=== PATIENT | female | born 1955 | race Asian ===

== ENCOUNTER 2022-02-19 14:37 | Outpatient (REF) | payer OTHER, SELFPAY ==
[2022-02-19 15:01] LABS: MANUAL DIFF FLAG NO
[2022-02-19 15:12] LABS: Basophils Absolute Auto 0.1 X10*3/uL (0.0-0.2); Basophils Percent Auto 0.5 % (0-2); Eosinophils Absolute Auto 0.5 X10*3/uL (0.0-0.4); Eosinophils Percent Auto 4.9 % (0-4); Hematocrit 38.8 % (37.0-47.0); Hemoglobin 13.4 g/dl (12.0-16.0); Imm Gran Abs Auto 0.08 X10*3/uL (0.00-0.03); Imm Gran Pct Auto 0.9 % (0.0-0.4); Lymphocytes Absolute Auto 2.8 X10*3/uL (1.2-4.9); Lymphocytes Percent Auto 29.6 % (20-40); Mean Corpuscular HGB Conc 34.5 g/dl (31.0-35.0); Mean Corpuscular Hemoglobin 30.1 pg (27.0-33.0); Mean Corpuscular Volume 87.2 fL (80.0-98.0); Mean Platelet Volume 10.2 fL (9.4-12.3); Monocytes Percent Auto 11.1 % (2-11); Platelet Count 349 X10*3/uL (160-400); Red Blood Count 4.45 X10*6/uL (4.20-5.50); Red Cell Distribution Width 12.4 % (11.0-16.0); White Blood Count 9.4 X10*3/uL (4.8-10.8)
[2022-02-19 15:19] LABS: INTERNATIONAL NORM RATIO 0.9 (0.9-1.1); Prothrombin Time 10.8 SEC (10.0-13.1)
[2022-02-19 15:22] LABS: Partial Thromboplastin Time 42.7 SEC (26.0-36.4)
[2022-02-19 15:40] LABS: Alanine Aminotransferase 36 U/L (0-31); Albumin Level 4.5 g/dL (3.5-5.0); Alkaline Phosphatase 88 U/L (39-117); Anion Gap 17 (12-20); Aspartate Amino Transferase 42 U/L (5-31); Bilirubin Total 0.4 mg/dL (0.0-1.0); Blood Urea Nitrogen 15 mg/dL (9-16); Calcium 8.8 mg/dL (8.4-10.2); Carbon Dioxide 24 mmol/L (22-29); Chloride 106 mmol/L (96-108); Estimated Glomerular Filt Rate > 60; Glucose Random 112 mg/dL (60-115); Potassium 3.9 mmol/L (3.3-5.1); Sodium 143 mmol/L (135-145); Total Protein 7.9 g/dL (6.5-8.0)
== END 2022-02-19 14:38 | disposition home or self-care (01) ==
LOC: HO.LAB 14:37
PROVIDERS: Absent Provider Internal Medicine; PCP Internal Medicine; Visit Provider Family Medicine
DX: K92.1 Melena (principal)
CPT/HCPCS: 36415; 80053; 85025; 85610; 85730

== ENCOUNTER → 2022-04-04 13:49 | Outpatient (BNVA) | payer OTHER, SELFPAY | PROVIDERS: PCP Family Medicine; Referring Provider Family Medicine; Visit Provider Nurse Practitioner | DX: Z01.818 Encounter for other preprocedural examination (principal); K59.04 Chronic idiopathic constipation; K64.9 Unspecified hemorrhoids; K62.5 Hemorrhage of anus and rectum | CPT/HCPCS: 99202 ==

== ENCOUNTER → 2022-06-11 15:19 | Outpatient (BNVA) | payer OTHER, SELFPAY | PROVIDERS: PCP Family Medicine; Visit Provider Nurse Practitioner | DX: K59.04 Chronic idiopathic constipation (principal); K64.9 Unspecified hemorrhoids | CPT/HCPCS: 99212 ==

== ENCOUNTER 2022-12-31 08:19 | Outpatient (REF) | payer OTHER, SELFPAY ==
--- NOTE | ~2022-12-31 | MM_ITS ---
EXAMINATION: BONE DENSITOMETRY CLINICAL INDICATION: Encounter for screening for osteoporosis. COMPARISON: None (current study represents initial baseline exam). TECHNIQUE: Using a [employer] DXA System (software version: 13.1) manufactured by [employer], dual-energy x-ray absorptiometry was performed of the lumbar spine and left hip. The images are of good technical quality. Summary results are attached. FINDINGS: AP SPINE L1-L4: BMD 0.902 g/cm2, Z-score -0.6, T-score -2.3, osteopenia. LEFT FEMUR, NECK: BMD 0.827 g/cm2, Z-score 0.1, T-score -1.5, osteopenia. LEFT FEMUR, TOTAL: BMD 0.995 g/cm2, Z-score 1.3, T-score -0.1, normal. IDENTIFIED RISK FACTORS: Menopause. HISTORY OF FRACTURE: None listed. MEDICATIONS: None listed. MM/XR DEXA axial skeleton IMPRESSION: 1. DIAGNOSIS: Osteopenia based on the lowest T-score value of -2.3 in the lumbar spine applying World Health Organization criteria. 2. 10-YEAR FRACTURE RISK PREDICTION, FRAX: Major osteoporotic fracture (clinical spine, forearm, hip or shoulder) 5.2%. Hip fracture 0.6%. 3. Treatment Recommendations: NOF guidelines recommend consideration for treatment in postmenopausal women and men age 50 and older presenting with the following: -A hip or vertebral (clinical or morphometric) fracture. -T-score less than or equal to -2.5 at the femoral neck or spine after appropriate evaluation to exclude secondary causes. -Low bone mass at the hip or spine and a 10-year fracture probability by FRAX of greater than or equal to 3% for hip fracture or greater than or equal to 20% for major osteoporotic fracture based on the [place] adapted WHO algorithm. 4. Other Recommendations: All treatment decisions require clinical judgment and consideration of individual patient factors, including patient preferences, comorbidities, previous drug use, risk factors not captured in the FRAX model (e.g. frailty, falls, vitamin D deficiency, increased bone turnover, interval significant decline in bone density) and possible under or overestimation of fracture risk by FRAX. Additional medical evaluation for secondary cause of low bone mineral density may be appropriate. FUTURE SCAN RECOMMENDATION: People with diagnosed cases of osteoporosis or at high risk for fracture should have regular bone mineral density tests. For patients eligible for Medicare, routine testing is allowed once every 2 years. The testing frequency can be increased to one year for patients who have rapidly progressing disease, those who are receiving or discontinuing medical therapy to restore bone mass, or have additional risk factors.
--- NOTE | ~2022-12-31 | MM_ITS ---
EXAMINATION: MM SCREENING DIGITAL BREAST TOMOSYNTHESIS, BILATERAL CLINICAL INFORMATION: Screening. Asymptomatic. The lifetime risk of breast cancer based on the Tyrer-Cuzick Model is 4.3%. COMPARISON: Mammography: August 26, 2011 and July 26, 2010 TECHNIQUE: Digital breast tomosynthesis is performed in both the craniocaudal and mediolateral oblique views along with computer-aided detection (CAD). Synthesized 2D images are generated from the tomosynthesis. FINDINGS: There are scattered areas of fibroglandular density (ACR BI-RADS breast composition Category b). There are no significant masses, abnormal calcifications, or other abnormalities. MM/MM tomosynthesis screening BI IMPRESSION: No significant changes from prior exam. ASSESSMENT: BI-RADS 1: Negative RECOMMENDATION: Routine annual mammography screening. This patient's information was entered into a reminder system with a target due date for their next mammogram.
== END 2022-12-31 08:20 | disposition home or self-care (01) ==
LOC: HO.MAMMO 08:19
PROVIDERS: PCP Internal Medicine; Visit Provider Registered Nurse
DX: Z12.31 Encounter for screening mammogram for malignant neoplasm of breast (principal); Z13.820 Encounter for screening for osteoporosis; Z78.0 Asymptomatic menopausal state; M81.0 Age-related osteoporosis without current pathological fracture
CPT/HCPCS: 77063; 77067; 77080

== ENCOUNTER → 2023-01-09 15:37 | Outpatient (BNVA) | payer OTHER, SELFPAY | PROVIDERS: Visit Provider Nurse Practitioner | DX: K59.04 Chronic idiopathic constipation (principal); K64.9 Unspecified hemorrhoids; K21.9 Gastro-esophageal reflux disease without esophagitis | CPT/HCPCS: 99212 ==

== ENCOUNTER 2023-02-26 07:35 | Outpatient (REF) | payer OTHER, SELFPAY ==
--- NOTE | ~2023-02-26 | US_ITS ---
EXAMINATION: US ABDOMEN COMPLETE CLINICAL INFORMATION: Abnormal liver enzymes. COMPARISON: Abdominal ultrasound September 06, 2019 TECHNIQUE: Real-time imaging of the abdominal viscera. Today's examination is mildly limited secondary to overlying bowel gas. FINDINGS: PANCREAS: Visualized portions of pancreas are normal in appearance. ABDOMINAL AORTA: The proximal and mid segments are normal in caliber. The distal segment is not clearly visualized due to overlying bowel gas. INFERIOR VENA CAVA: Visualized portions are normal. LIVER: The liver is normal in size. The liver contour is normal. Liver echogenicity is increased diffusely. No focal hepatic lesion. There is no intrahepatic biliary duct dilatation seen. GALLBLADDER: The gallbladder is physiologically distended. There is a 3 mm echogenic focus contiguous with the gallbladder wall which is most consistent with a tiny polyp. No shadowing gallstones identified. No gallbladder wall thickening or pericholecystic fluid appreciated. Negative sonographic Zhou's sign. COMMON BILE DUCT: Normal in caliber measuring 0.3 cm in diameter. RIGHT KIDNEY: Normal. No hydronephrosis. No renal calculi or focal parenchymal lesions. The kidney measures 10.1 cm in maximum dimension. LEFT KIDNEY: Normal. No hydronephrosis. No renal calculi or focal parenchymal lesions. The kidney measures 10 cm in maximum dimension. SPLEEN: Normal. The spleen measures 10.5 cm in maximum dimension. FREE FLUID: None. US/US abdomen complete IMPRESSION: 1. Diffusely increased liver echogenicity. This is a nonspecific finding but most suggestive of hepatic steatosis. Correlation with liver enzymes recommended. 2. Suspected 3 mm gallbladder polyp.
== END 2023-02-26 07:36 | disposition home or self-care (01) ==
LOC: HO.US 07:35
PROVIDERS: Visit Provider Internal Medicine
DX: R79.89 Other specified abnormal findings of blood chemistry (principal)
CPT/HCPCS: 76700

== ENCOUNTER 2023-12-10 08:37 | Outpatient (REF) | payer OTHER, SELFPAY ==
[2023-12-10 14:45] LABS: MANUAL DIFF FLAG NO
[2023-12-10 15:11] LABS: Alanine Aminotransferase 16 U/L (0-31); Albumin Level 4.6 g/dL (3.5-5.0); Alkaline Phosphatase 85 U/L (39-117); Anion Gap 16 (12-20); Aspartate Amino Transferase 23 U/L (5-31); Bilirubin Total 0.5 mg/dL (0.0-1.0); Blood Urea Nitrogen 22 mg/dL (9-16); Calcium 9.7 mg/dL (8.4-10.2); Carbon Dioxide 22 mmol/L (22-29); Chloride 106 mmol/L (96-108); Cholesterol 171 mg/dL (<200); Estimated Glomerular Filt Rate > 60; Glucose Random 105 mg/dL (60-115); HDL Cholesterol 30 mg/dL (>40); LDL Cholesterol Calculated 82 mg/dL (<100); Potassium 4.1 mmol/L (3.3-5.1); Sodium 140 mmol/L (135-145); Total Protein 8.1 g/dL (6.5-8.0); Triglycerides 298 mg/dL (<150)
[2023-12-10 15:23] LABS: Basophils Absolute Auto 0.1 X10*3/uL (0.0-0.2); Basophils Percent Auto 0.8 % (0-2); Eosinophils Absolute Auto 0.4 X10*3/uL (0.0-0.4); Eosinophils Percent Auto 5.3 % (0-4); Hematocrit 41.1 % (37.0-47.0); Imm Gran Abs Auto 0.05 X10*3/uL (0.00-0.03); Imm Gran Pct Auto 0.7 % (0.0-0.4); Lymphocytes Absolute Auto 1.8 X10*3/uL (1.2-4.9); Lymphocytes Percent Auto 24.3 % (20-40); Mean Corpuscular HGB Conc 34.1 g/dl (31.0-35.0); Mean Corpuscular Hemoglobin 30.4 pg (27.0-33.0); Mean Corpuscular Volume 89.2 fL (80.0-98.0); Mean Platelet Volume 11.4 fL (9.4-12.3); Monocytes Absolute Auto 0.9 X10*3/uL (0.1-1.2); Monocytes Percent Auto 12.1 % (2-11); Neutrophils Absolute Auto 4.2 x10*3/uL (2.0-8.3); Neutrophils Percent Auto 56.8 % (45-73); Platelet Count 300 X10*3/uL (160-400); Red Blood Count 4.61 X10*6/uL (4.20-5.50); Red Cell Distribution Width 12.3 % (11.0-16.0); White Blood Count 7.3 X10*3/uL (4.8-10.8)
[2023-12-10 15:28] LABS: TSH reflex Free T4 3.48 uIU/mL (0.32-4.0)
== END 2023-12-10 08:38 | disposition home or self-care (01) ==
LOC: HO.CHCLDS 08:37
PROVIDERS: Visit Provider Internal Medicine
DX: M77.9 Enthesopathy, unspecified (principal)
CPT/HCPCS: 36415; 80053; 80061; 84443; 85025

== ENCOUNTER 2024-01-13 10:26 | Outpatient (REF) | payer OTHER, SELFPAY ==
--- NOTE | ~2024-01-13 | MM_ITS ---
EXAMINATION: MM SCREENING DIGITAL BREAST TOMOSYNTHESIS, BILATERAL CLINICAL INFORMATION: Screening. Asymptomatic. COMPARISON: Mammography: This study is compared with prior exams dating back to 2012. TECHNIQUE: Digital breast tomosynthesis is performed in both the craniocaudal and mediolateral oblique views along with computer-aided detection (CAD). Synthesized 2D images are generated from the tomosynthesis. FINDINGS: There are scattered areas of fibroglandular density (ACR BI-RADS breast composition Category b). There are no significant masses, abnormal calcifications, or other abnormalities. MM/MM tomosynthesis screening BI IMPRESSION: No mammographic evidence of malignancy. ASSESSMENT: BI-RADS BI-RADS 1 - Negative RECOMMENDATION: Routine annual mammography screening. 1 year F/U This examination should not preclude the clinical evaluation of a suspicious palpable abnormality. This patient's information was entered into a reminder system with a target due date for their next mammogram.
== END 2024-01-13 10:27 | disposition home or self-care (01) ==
LOC: HO.MAMMO 10:26
PROVIDERS: PCP Internal Medicine; Visit Provider Internal Medicine
DX: Z12.31 Encounter for screening mammogram for malignant neoplasm of breast (principal)
CPT/HCPCS: 77063; 77067

== ENCOUNTER → 2024-01-13 11:00 | Outpatient (BNV) | payer OTHER, SELFPAY | PROVIDERS: PCP Internal Medicine; Visit Provider Radiology Diagnostic Radiology | DX: Z12.31 Encounter for screening mammogram for malignant neoplasm of breast (principal) | CPT/HCPCS: 77063; 77067 ==

== ENCOUNTER 2024-03-02 13:51 | Outpatient (AMB) | payer OTHER, SELFPAY ==
--- NOTE | 2024-03-02 13:53 | MHC.OFFVIS ---
Vital Signs 03/02/24 14:03 Height 5 ft 1 in Weight 137 lb 9.095 oz BMI 26.0 BP 140/79 H Blood Pressure Location Lt brachial Position Sitting Pulse 81 Intake Visit Reasons: f/u [facility] Intake Note: Loan returns to in office visit today in follow up of [facility]. CC: Patient reports doing well on medications and denies having any GI symptoms or concerns today. Faith Healer Required: Yes Faith Healer Name: son in law Accompanied by: Family/Other Allergies No Known Allergies Allergy (Verified 03/02/24 14:04) HPI HPI f/u [facility]: Details: Assessment & Plan (1) Chronic idiopathic constipation: Code(s): K59.04 - Chronic idiopathic constipation Plan: Her son translates for her [place] language a Citizen [place]. She continues to do extremely well moving her bowels to her satisfaction utilizing her senna and her Colace. She also has MiraLax available if needed. Since we have restored her bowel motility she is no longer needed any medication for her GERD and is no longer taking the generic for Nexium. Return office visit in 1 year since she is very stable. (2) GERD (gastroesophageal reflux disease): Comment: No longer taking any acid reducing therapy after restoring bowel motility Code(s): K21.9 - Gastro-esophageal reflux disease without esophagitis (3) Hemorrhoids without complication: Code(s): K64.9 - Unspecified hemorrhoids Medications: Refilled sennosides (senna) 17.2 mg (2 x 8.6 mg) PO BEDTIME 30 days 60 caps 6RF constipation docusate sodium (Colace) 100 mg PO .DAILY WITH FOOD 30 days 30 caps 6RF K59.04 - Chronic idiopathic constipation TODAY'S VISIT Citizen [place] # son translates per pt request This is the patient's yearly follow-up since she has been very stable in the past. She remains well controlled on her senna, miralax, colace and proctosol cream. No new health problems ROV 1 year. [facility] Medical History Pre-op examination Hyperplastic colon polyp Surgical History H/O colonoscopy Social History Alcohol intake: never Patient Tobacco Use Status: Never used Tobacco Review of Systems Const Denies fatigue, Denies fever(s), Denies night sweats, Denies poor appetite and Denies weight loss Eyes Details: glasses Reports requires corrective lenses ENT Reports Normal hearing present, Denies dental pain, Denies dysphagia, Denies hearing loss, Denies mouth pain, Denies odynophagia, Denies throat swelling, Denies tongue swelling and Reports other (Dentition adequate) Card Reports no additional complaints Resp Reports no additional complaints GI Details: Denies abdominal pain, Denies melena, Denies bloating, Denies hematochezia, Reports constipation, Denies GI cramping, Denies dysphagia, Denies excessive flatus, Denies early satiety, Denies heartburn, Denies diarrhea, Denies nausea, Denies odynophagia, Denies vomiting and Denies hematemesis Skin/Breast Denies pruritus, Denies lesions, Denies rash and Denies jaundice Neuro Reports Normal hearing present and Denies Abnormal speech present Endo Denies fatigue Aller/Immun Denies throat swelling and Denies tongue swelling Physical Exam Vital Signs: Last Vital Signs Pulse 81 03/02/24 14:03 BP 140/79 H 03/02/24 14:03 BMI result Body Mass Index 26.0 Const General: cooperative, no acute distress, well developed and well groomed Nutritional Appearance: average body habitus and well nourished Orientation/consciousness: oriented to person, oriented to place and oriented to time Limitations: language barrier HEENT Head: Yes normocephalic and Yes atraumatic Eyes General: appearance normal, both eyes and all related structures Pupils: Equal, round and reactive pupils present Neck Neck: Yes normal visual inspection and Yes no lymphadenopathy Thyroid: Thyroid normal Resp Effort & Inspection: normal respiratory effort and able to speak in complete sentences Auscultation: clear to auscultation bilaterally Cardio Rate: regular rate Rhythm: regular rhythm Heart sounds: Normal, physiologic split S2 sound present Peripheral pulses: radial pulses present and posterior tibial pulses present GI Inspection: No distended and No Abdominal panniculus present Palpation (GI): Soft to palpation, nontender, no guarding, not rigid and No hepatosplenomegaly present Percussion: Yes normal to percussion Auscultation: normal bowel sounds Rectal Exam - Female: deferred Skin General skin exam: no rashes or lesions noted, turgor normal, skin not dry, no jaundice, No spider nevi and no striae Rashes: no rashes Nails: normal Neuro General: oriented to person, oriented to place and oriented to time Cranial nerves: Yes Equal, round and reactive pupils present and Yes Normal hearing present Speech: No Abnormal speech present Extrem General: Yes normal to inspection, No clubbing, No cyanosis and No edema Psych Appearance: grossly normal and well kempt Mental Status: mental status grossly normal Speech and movement: Normal speech and movement present Affect: normal affect Attitude: cooperative Thought process: Normal thought process present and not confabulating Thought content: Normal thought content present Insight: Good insight present (Psych) Judgement: Good judgement present (Psych) Assessment & Plan Assessment & Plan (1) GERD (gastroesophageal reflux disease): Comment: No longer taking any acid reducing therapy after restoring bowel motility Code(s): K21.9 - Gastro-esophageal reflux disease without esophagitis Category: Medical (2) Chronic idiopathic constipation: Code(s): K59.04 - Chronic idiopathic constipation Category: Medical Plan Citizen [place] # son translates per pt request This is the patient's yearly follow-up since she has been very stable in the past. She remains well controlled on her senna, miralax, colace and proctosol cream. No new health problems ROV 1 year. Medications: Changed From polyethylene glycol 3350 17 grams PO DAILY To polyethylene glycol 3350 17 grams PO DAILY 510 grams 12RF Refilled sennosides (Bailey-abby) 17.2 mg (2 x 8.6 mg) PO BEDTIME 60 tabs 12RF for constipation hydrocortisone 2.5% (Proctosol HC) 1 appl UT BID PRN 30 grams 12RF hemorrhoids K64.9 - Unspecified hemorrhoids docusate sodium 100 mg PO DAILY 30 ea 12RF K59.04 - Chronic idiopathic constipation Coding Level of Care Code Est Pt Level 3 (39101) Diagnoses GERD (gastroesophageal reflux disease) K21.9 Chronic idiopathic constipation K59.04
[2024-03-02 14:03] VITALS: BP 140/79; PULSE 81; BMI 26.0
== END 2024-03-02 14:33 | disposition home or self-care (01) ==
PROVIDERS: PCP Internal Medicine; Visit Provider Nurse Practitioner
DX: K21.9 Gastro-esophageal reflux disease without esophagitis (principal); K59.04 Chronic idiopathic constipation
CPT/HCPCS: 99213

== ENCOUNTER → 2024-03-02 13:51 | Outpatient (BNVA) | payer OTHER, SELFPAY | PROVIDERS: PCP Internal Medicine; Visit Provider Nurse Practitioner | DX: K21.9 Gastro-esophageal reflux disease without esophagitis (principal); K59.04 Chronic idiopathic constipation | CPT/HCPCS: 99212 ==

== ENCOUNTER 2025-07-12 14:08 | Outpatient (REF) | payer OTHER, SELFPAY ==
--- OUTSIDE RECORDS SUMMARY | 2025-07-12 13:30 | XMS_ITS | Encounter Summary ---
Author Organization [employer] Address [address] [place] [address] [address] [address] Care Team Providers Care Board Machine Set Up Operator Name Role Phone Barbara Russell MD Primary Care Provider [phone] Reason for Referral * Imaging (Routine) - Authorized Specialty Diagnoses / Procedures Referred By Contruthy t Referred To Contact Radiology Diagnoses Screening mammogram for breast cancer Procedures BI Mammogram Screening Tomosynthesis Bilateral Barbara Russell MD [address] [place] [address] Phone: tel: fax: [address] [phone] Phone: tel: fax: Referral ID Status Reason Start Date Expiration Date V isits Requested Visits Authorized [id number] Authorized 07/12/2025 07/12/2026 1 1 Reason for Visit * Reason Comments Follow-up Encounter Details Date Type Department Care Team (Late st Contact Info) Description 07/12/2025 1:30 PM EST Office Visit [facility] [address] [place], [place] [phone] Barbara Russell MD [address] [place], [place] [phone] Essential hypertension (Primary Dx); Pure hypercholesterolemia; PAM (generalized anxiety disorder); Essential hypertension; Chronic GERD; PAM (generalized anxiety disorder); Hypertriglyceridemia; Seasonal allergic rhinitis, unspecified trigger; Screening mammogram for breast cancer Social History Tobacco Use Types Packs/Day Years Used Date Smoking Tobacco: Never Smokeless Tobacco: Never Alcohol Answer Date Recorded Q1: How often do you have a drink containing alc ohol? 2 07/22/2024 Q2: How many drinks containi ng alcohol do you have on a typical day when you are drinking? 0 07/22/2024 Q3: How often do you have six or more drinks on one occasion? 2 07/22/2024 Depression Answer Date Recorded Patient Health Questionnaire-9 Score 0 07/12/2025 Patient Health Questionnaire-9 Score 0 07/12/2025 Last PHQ-9: Questionnaire Data Not on file 1 Housing Stability Answer Date Recorded What is your housing situation today? I have erin díaz 07/15/[address] you li ve. Do you have problems with any of the following? None of the above 07/15/2024 Food Insecurity Answer Date Recorded Within the past 12 months, y ou worried that your food would run out before you got money to buy more: Never True 07/15/2024 Within the past 12 months,th e food you bought just didn't last and you didn't have enough money to get more: Never True 08/2024 Transportation Answer Date Recorded In the past 12 months, has l ack of transportation kept you from medical appts, meetings, work or from getting things needed for daily living? No 07/15/2024 Utilities Answer Date Recorded In the past 12 months, has t he electric, gas, oil or water company threatened to shut off services in your home? No 07/15/2024 Depression Answer Date Recorded Patient Health Questionnaire-2 Score 0 07/12/2025 Internet Access Answer Date Recorded Internet Access Q1 Yes 07/15/2024 Internet Access Q2 Not on file 07/15/2024 Comments Unknown Sex and Gender Information Value Date Recorded Sex Assigned at Female 05/13/2022 10:21 AM EDT Legal Sex Female 10:21 AM EDT Gender Identity Female 05/13/2022 10:21 AM EDT Sexual Orientation Straight 05/13/2022 10 :21 AM EDT documented as of this encounter Last Filed Vital Signs Vital Sign Reading Time Taken Comments Blood Pressure 135/83 07/12/2025 1:39 PM EST Pulse 90 07/12/2025 1:39 PM EST Temperature 36.3 C (97.3 F) 07/12/2025 1:39 PM EST Respiratory Rate 20 07/12/2025 1:39 PM EST Oxygen Saturation 93% 07/12/2025 1:39 PM EST Inhaled Oxygen Concentration - - Weight 64.4 kg (142 lb) 07/12/2025 1:39 PM EST Height 151.1 cm (4' 11.5 ) 07/12/2025 1:39 PM ES T Body Mass Index 28.2 07/12/2025 1:39 PM EST documented in this encounter Functional Status * Over the past 2 weeks, how often have you been bothered by any of the following problems? Question Answer Date of Assessment Author Patient Health Questionnaire-2 Score 0 06/15 1:44 PM Vanessa Swartz MA * Little interest or pleasure in doing things Answer Date of Assessment Author Not at all 07/12/2025 1:44 PM Onesimo Swartz MA * Feeling down, depressed, or hopeless Answer Date of Assessment Author Not at all 07/12/2025 1:44 PM Onesimo Swartz MA * Trouble falling or staying asleep, or sleeping too much Answer Date of Assessment Author Not at all 07/12/2025 1:44 PM Onesimo Swartz MA * Feeling tired or having little energy Answer Date of Assessment Author Not at all 07/12/2025 1:44 PM Onesimo Swartz MA * Poor appetite or overeating Answer Date of Assessment Author Not at all 07/12/2025 1:44 PM Onesimo Swartz MA * Feeling bad about yourself - or that you are a failure or have let yourself or your family down Answer Date of Assessment Author Not at all 07/12/2025 1:44 PM Onesimo Swartz MA * Trouble concentrating on things, such as reading the newspaper or watching television Answer Date of Assessment Author Not at all 07/12/2025 1:44 PM Onesimo Swartz MA * Moving or speaking so slowly that other people could have noticed? Or the opposite - being so fidgety or restless that you have been moving around a lot more than usual. Answer Date of Assessment Author Not at all 07/12/2025 1:44 PM Onesimo Swartz MA * Thoughts that you would be better off or hurting yourself in some way Answer Date of Assessment Author Not at all 07/12/2025 1:44 PM Onesimo Swartz MA * Patient Health Questionnaire-9 Score Answer Date of Assessment Author 0 07/12/2025 1:44 PM Onesimo Swartz MA * Over the last 2 weeks, how often have you been bothered by any of the following problems? Question Answer Date of Assessment Author Feeling nervous, anxious, or on edge 0 06/15 1:43 PM Vanessa Swartz MA Not being able to stop or co ntrol worrying 0 07/12/2025 1:43 PM Vanessa Swartz MA Worrying too much about diff erent things 0 07/12/2025 1:43 PM Vanessa Swartz MA Trouble relaxing 0 07/12/2025 1:43 PM Vanessa Andres MA Being so restless that it is hard to sit still 0 07/12/2025 1:43 PM Vanessa Swartz MA Becoming easily annoyed or irritable 0 06/15 1:43 PM Vanessa Swartz MA Feeling afraid as if somethi ng awful might happen 0 07/12/2025 1:43 PM Vanessa Swartz MA PAM-7 Total Score 0 07/12/2025 1:43 PM Vanessa Swartz MA documented as of this encounter Progress Notes * Barbara Russell MD - 07/12/2025 1:30 PM EST SUBJECTIVE Purnima Gutierrez is a 69 y.o. female who presents for Follow-up. HPI Purnima Gutierrez, 69-year-old female - History of high blood pressure, high cholesterol, and anxiety disorder - No acute events since last visit - Denies side effects from current medications - Last blood tests performed approximately 1 year ago - Uses Flonase as needed for allergic rhinitis - Already received flu shot for current season Problem List[1] Allergies[2] Medications Ordered Prior to Encounter[3] Review of Systems Constitutional: Negative for appetite change, chills and diaphoresis. Eyes: Negative for photophobia, pain and redness. Respiratory: Negative for cough, choking and shortness of breath. Musculoskeletal: Negative for back pain, gait problem and joint swelling. OBJECTIVE Vitals: 07/12/25 1339 BP: 135/83 BP Location: Left arm Patient Position: Sitting BP Cuff Size: Adult Pulse: 90 Resp: 20 Temp: 97.3 ??F (36.3 ??C) TempSrc: Oral SpO2: 93% Weight: 142 lb (64.4 kg) Height: 4' 11.5 (1.511 m) Physical Exam Constitutional: General: She is not in acute distress. Appearance: Normal appearance. She is not ill-appearing, toxic-appearing or diaphoretic. Cardiovascular: Rate and Rhythm: Normal rate. Pulmonary: Effort: Pulmonary effort is normal. Neurological: General: No focal deficit present. Mental Status: She is alert. Psychiatric: Mood and Affect: Mood normal. Assessment/Plan Assessment/Plan Diagnoses and all orders for this visit: Essential hypertension - CBC auto differential; Future - Comprehensive Metabolic Panel; Future - Lipid Panel, Standard; Future - TSH with Reflex to Free T4; Future - amLODIPine (Norvasc) 5 MG tablet; Take 1 tablet (5 mg) by mouth Once per day. - losartan (Cozaar) 50 MG tablet; Take 1 tablet (50 mg) by mouth Once per day. Pure hypercholesterolemia - CBC auto differential; Future - Comprehensive Metabolic Panel; Future - Lipid Panel, Standard; Future - TSH with Reflex to Free T4; Future PAM (generalized anxiety disorder) - sertraline (Zoloft) 25 MG tablet; Take 1 tablet (25 mg) by mouth Once per day. Essential hypertension Comments: Stable No change DASH diet Orders: - CBC auto differential; Future - Comprehensive Metabolic Panel; Future - Lipid Panel, Standard; Future - TSH with Reflex to Free T4; Future - amLODIPine (Norvasc) 5 MG tablet; Take 1 tablet (5 mg) by mouth Once per day. - losartan (Cozaar) 50 MG tablet; Take 1 tablet (50 mg) by mouth Once per day. Chronic GERD Comments: Stable On nexium Continue w/ avoidance of any trigger Orders: - esomeprazole (NexIUM) [address] capsule; Take 1 capsule (20 mg) by mouth Once per day. PAM (generalized anxiety disorder) Comments: Stable Continue w/ hydroxyzine and Zoloft. Orders: - sertraline (Zoloft) 25 MG tablet; Take 1 tablet (25 mg) by mouth Once per day. Hypertriglyceridemia Comments: Low carb and low Chol diet Meds as above. Orders: - gemfibrozil (Lopid) 600 MG tablet; TAKE 1 TABLET two (2) times a day Seasonal allergic rhinitis, unspecified trigger Comments: Flonase and Hydroxyzine refilled. Orders: - fluticasone (Flonase) 50 MCG/ACT nasal spray; Administer 1 spray into each nostril Once per day. Shake gently. Before first use, prime pump. After use, clean tip and replace cap. Screening mammogram for breast cancer - BI Mammogram Screening Tomosynthesis Bilateral; Future Essential hypertension: - Blood pressure well controlled. - Continue current antihypertensive regimen. Refills provided for antihypertensive medication. Pure hypercholesterolemia: - Ordered blood tests to monitor cholesterol levels. PAM (generalized anxiety disorder): - Continue current medication regimen. Refills provided for anxiety medication. Chronic GERD: - Refills provided for GERD medication. Hypertriglyceridemia: - Ordered blood tests to monitor triglyceride levels. Seasonal allergic rhinitis, unspecified trigger: - Allergic rhinitis controlled, Flonase used as needed. - Prescribed Flonase for use as needed. Screening mammogram for breast cancer: - Due for screening mammogram. - Ordered screening mammogram. Consent obtained. This note was drafted using Ambient (AI) technology. The patient/patient's guardian has been informed and has consented to the use of this technology: Yes [1] Patient Active Problem List Diagnosis Constipation Essential hypertension Pain in joint involving lower leg Pure hypercholesterolemia Skin sensation disturbance Routine adult health maintenance Seasonal allergic rhinitis Elevated partial thromboplastin time (PTT) Fatigue due to excessive exertion Blood in stool [2] Allergies Allergen Reactions Lisinopril Cough [3] Current Outpatient Medications on File Prior to Visit Medication Sig Dispense Refill amLODIPine (Norvasc) 5 MG tablet TAKE 1 TABLET ONCE DAILY 30 tablet 11 Diclofenac Sodium 1 % gel APPLY TO THE AFFECTED AREA ON SKIN 3 (THREE) TIMES A DAY 100 g 1 hydrOXYzine HCl (Atarax) 25 MG tablet TAKE 1 TABLET IN THE MORNING, AT NOON, AND AT BEDTIME 90 tablet 3 meclizine (Antivert) 25 MG tablet TAKE 1 TABLET NEEDED IN THE MORNING, AT NOON, AND AT BEDTIME FOR DIZZINESS 30 tablet 1 omega-3 (Fish Oil) 1000 MG capsule 1 cap 2 times a day omega-3 (fish oil) [address] 1 capsule (1,000 mg) into mouth between cheek and gum in the morning and at bedtime. 180 capsule 3 [DISCONTINUED] amLODIPine (Norvasc) 5 MG tablet TAKE 1 TABLET ONCE DAILY 90 tablet 3 [DISCONTINUED] esomeprazole (NexIUM) [address] capsule TAKE 1 CAPSULE ONCE DAILY 90 capsule 3 [DISCONTINUED] fluticasone (Flonase) 50 MCG/ACT nasal spray SPRAY ONCE INTO EACH NOSTRIL two (2) times a day. shake well nhe 16 g 1 [DISCONTINUED] gemfibrozil (Lopid) 600 MG tablet TAKE 1 TABLET two (2) times a day 180 tablet 3 [DISCONTINUED] losartan (Cozaar) 50 MG tablet TAKE 1 TABLET ONCE DAILY 90 tablet 3 [DISCONTINUED] sertraline (Zoloft) 25 MG tablet TAKE 1 TABLET ONCE DAILY 90 tablet 3 No current facility-administered medications on file prior to visit. documented in this encounter Plan of Treatment Scheduled Orders Name Type Priority Associated Diagnoses Orde r Schedule BI Mammogram Screening Tomosynthesis Bilateral Imaging Routine Screening mammogram for breast cancer Expected: 07/12/2025, Expires: 09/10/2026 documented as of this encounter Procedures Procedure Name Priority Date/Time Associated Diagnosis Comments TSH W/REFLEX TO FT4 Routine 07/12/2025 2 :13 PM EST Essential hypertension Pure hypercholesterolemia CBC WITH AUTO DIFFERENTIAL Routine 07/12/2025 2:13 PM EST Essential hypertension Pure hypercholesterolemia LIPID PANEL, STANDARD Routine 07/12/2025 2:13 PM EST Essential hypertension Pure hypercholesterolemia COMPREHENSIVE METABOLIC PANEL Routine 07/12/2025 2:13 PM EST Essential hypertension Pure hypercholesterolemia documented in this encounter Results * TSH with Reflex to Free T4 (07/12/2025 2:13 PM EST) TSH reflex Free T4 2.57 0.32 - 4.0 uIU/mL [facility] Blood Venous blood specimen / Unknown 07/12/2025 2:13 PM EST 07/12/2025 3:10 PM EST Barbara Russell MD LAB BLOOD ORDERABLES Final Result Performing Organization Address [facility] de Phone Number [facility] [address] [place] [phone] * (ABNORMAL) Lipid Panel, Standard (07/12/2025 2:13 PM EST) Triglycerides 494(H) <150 mg/dL [facility] Comment:Slight Lipemia.Martita able Triglyceride: less than 150 mg/dLBorderline High Triglyceride 150-199 mg/dLHigh Triglyceride: 200-499 mg/dLVery High Triglyceride: greater than or equal to 5OO mg/dL Cholesterol 163 <200 mg/dL [facility] Comment:Desirable Cholestero l: less than 200 mg/dLBorderline High Cholesterol: 200-239 mg/dLHigh Cholesterol: greater than 239 mg/dL LDL Cholesterol Calculated TNP <100 mg/dL [facility] Comment:Unable to calculate the LDL. The formula of Friedwald,Rosales, and Odalys is only valid if the triglycerides areless than 400 mg/dl. HDL Cholesterol 23(L) >40 mg/dL [facility] Comment:Desirable HDL: great er than 40 mg/dL Note: This HDL assay may give artificially low results in patients with liver disease. Blood Venous blood specimen / Unknown 07/12/2025 2:13 PM EST 07/12/2025 3:10 PM EST us Barbara Russell MD LAB BLOOD ORDERABLES Final Result Performing Organization Address [facility]/ZIP Co de Phone Number [facility] [address] [place] [phone] * (ABNORMAL) Comprehensive Metabolic Panel (07/12/2025 2:13 PM EST) Sodium 141 135 - 145 mmol/L [facility] Potassium 3.9 3.3 - 5.1 mmol/L [facility] Chloride 108 96 - 108 mmol/L [facility] Carbon Dioxide 24 22 - 29 mmol/L [facility] Anion Gap 13 12 - 20 [facility] Urea Nitrogen (BUN) 24(H) 9 - 16 mg/dL [facility] Creatinine, Serum 0.66 0.5 - 1.4 mg/dL [facility] Estimated Glomerular Filt Rate >60 [facility] Comment:Chronic Kidney Disea se: Estimated GFR < 60 mL/min/[id number] Kidney Disease: Estimated GFR < 15 mL/min/1.73m2 Glucose 142(H) 60 - 115 mg/dL [facility] Calcium 9.4 8.4 - 10.2 mg/dL [facility] Bilirubin, Total 0.3 0.0 - 1.0 mg/dL [facility] Aspartate Amino Transferase 43(H) 5 - 31 U/L [facility] Alanine Aminotransferase 13 0 - 31 U/L [facility] Total Protein 7.7 6.5 - 8.0 g/dL [facility] Albumin Level 4.7 3.5 - 5.0 g/dL [facility] Alkaline Phosphatase 86 39 - 117 U/L [facility] Blood Venous blood specimen / Unknown 07/12/2025 2:13 PM EST 07/12/2025 3:10 PM EST us Barbara Russell MD LAB BLOOD ORDERABLES Final Result [facility] [address] [place] [phone] [phone] * (ABNORMAL) CBC auto differential (07/12/2025 2:13 PM EST) White Blood Count 7.3 4.8 - 10.8 X10*3/uL [facility] Red Blood Count 4.89 4.20 - 5.50 X10*6/uL [facility] Hemoglobin 13.7 12.0 - 16.0 g/dl [facility] Hematocrit 40.4 37.0 - 47.0 % [facility] Mean Corpuscular Volume 82.6 80.0 - 98.0 fL [facility] Mean Corpuscular Hemoglobin 28.0 27.0 - 33.0 pg [facility] Mean Corpuscular HGB Conc 33.9 31.0 - 35.0 g/dl [facility] Red Cell Distribution Width 12.3 11.0 - 16.0 % [facility] Platelet Count 313 160 - 400 X10*3/uL [facility] Mean Platelet Volume 10.2 9.4 - 12.3 fL [facility] Neutrophils Percent Auto 49.1 45 - 73 % [facility] Imm Gran Pct Auto 0.8(H) 0.0 - 0.4 % [facility] Lymphocytes Percent Auto 30.4 20 - 40 % [facility] Monocytes Percent Auto 12.4(H) 2 - 11 % [facility] Eosinophils Percent Auto 6.3(H) 0 - 4 % [facility] Basophils Percent Auto 1.0 0 - 2 % [facility] NRBC Pct Auto 0.0 0.0 - 0.2 /100WBC [facility] Neutrophils Absolute Auto 3.6 2.0 - 8.3 x10*3/uL [facility] Imm Gran Abs Auto 0.06(H) 0.00 - 0.03 X10*3/uL [facility] Lymphocytes Absolute Auto 2.2 1.2 - 4.9 X10*3/uL [facility] Monocytes Absolute Auto 0.9 0.1 - 1.2 X10*3/uL [facility] Eosinophils Absolute Auto 0.5(H) 0.0 - 0.4 X10*3/uL [facility] Basophils Absolute Auto 0.1 0.0 - 0.2 X10*3/uL [facility] NRBC Abs Auto 0.000 0.0 - 0.012 X10*3/uL [facility] Blood Venous blood specimen / Unknown 07/12/2025 2:13 PM EST 07/12/2025 3:06 PM EST Barbara Russell MD LAB BLOOD ORDERABLES Final Result [facility] [address] [place] [phone] documented in this encounter Visit Diagnoses Diagnosis Essential hypertension- Primary Unspecified essential hypertension Pure hypercholesterolemia PAM (generalized anxiety disorder) Generalized anxiety disorder Chronic GERD Hypertriglyceridemia Pure hyperglyceridemia Seasonal allergic rhinitis, unspecified trigger Screening mammogram for breast cancer documented in this encounter Additional Health Concerns Assessment Noted Time PHQ-9 Depression Total Score: 0 07/12/20 25 1:44 PM EST documented as of this encounter Care Teams Board Machine Set Up Operator Relationship Specialty Start Date End Date Barbara Russell MD [address] [place] [phone] PCP - General Internal Medicine 08/12/13 documented as of this encounter
[2025-07-12 15:11] LABS: MANUAL DIFF FLAG NO
[2025-07-12 15:16] LABS: Hematocrit 40.4 % (37.0-47.0); Hemoglobin 13.7 g/dl (12.0-16.0); Imm Gran Abs Auto 0.06 X10*3/uL (0.00-0.03); Imm Gran Pct Auto 0.8 % (0.0-0.4); Lymphocytes Absolute Auto 2.2 X10*3/uL (1.2-4.9); Mean Corpuscular HGB Conc 33.9 g/dl (31.0-35.0); Mean Corpuscular Hemoglobin 28.0 pg (27.0-33.0); Mean Corpuscular Volume 82.6 fL (80.0-98.0); NRBC Abs Auto 0.000 X10*3/uL (0.0-0.012); NRBC Pct Auto 0.0 /100WBC (0.0-0.2); Platelet Count 313 X10*3/uL (160-400); Red Blood Count 4.89 X10*6/uL (4.20-5.50); White Blood Count 7.3 X10*3/uL (4.8-10.8)
[2025-07-12 15:55] LABS: Alanine Aminotransferase 13 U/L (0-31); Albumin Level 4.7 g/dL (3.5-5.0); Alkaline Phosphatase 86 U/L (39-117); Anion Gap 13 (12-20); Aspartate Amino Transferase 43 U/L (5-31); Blood Urea Nitrogen 24 mg/dL (9-16); Calcium 9.4 mg/dL (8.4-10.2); Carbon Dioxide 24 mmol/L (22-29); Chloride 108 mmol/L (96-108); Cholesterol 163 mg/dL (<200); Estimated Glomerular Filt Rate > 60; HDL Cholesterol 23 mg/dL (>40); Potassium 3.9 mmol/L (3.3-5.1); Sodium 141 mmol/L (135-145); Total Protein 7.7 g/dL (6.5-8.0); Triglycerides 494 mg/dL (<150)
--- OUTSIDE RECORDS SUMMARY | 2025-07-12 17:55 | XMS_ITS | Encounter Summary ---
Author Organization [employer] Address [address] [facility] [address] [place] [address] Care Team Providers Care Route Salesman Name Role Phone Barbara Russell MD Primary Care Provider [phone] Encounter Details Date Type Department Care Team (Latest Contact Info) Description 07/12/2025 Travel Social History Tobacco Use Types Packs/Day Years [...] AM EDT documented as of this encounter Plan of Treatment Not on file documented as of this encounter Visit Diagnoses Not on filedocumented in this encounter Additional Health Concerns Assessment Noted Time PHQ-9 Depression Total Score: 0 07/12/20 25 1:44 PM EST documented as of this encounter Care Teams Route Salesman Relationship Specialty Start Date End Date Barbara Russell MD [address] [place] [phone] PCP - General Internal Medicine 08/12/13 documented as of this encounter
--- OUTSIDE RECORDS SUMMARY | 2025-07-12 17:55 | XMS_ITS | Encounter Summary ---
Author Organization [employer] Address [address] [facility] 7 [place] [address] Care Team Providers Care Front Desk Agent Name Role Phone Barbara Russell MD Primary Care Provider [phone] Reason for Visit * Reason Onset Date Comments chart prep 07/11/2025 Encounter Details Date Type Department Care Team ([facility] Contact Info) Description 07/11/2025 Telephone [facility] [address] [place] [phone] Barbara Russell MD [address] [place] [address] chart prep Social History Tobacco Use Types Packs/Day Years [...] AM EDT documented as of this encounter Miscellaneous Notes * Telephone Encounter - Marisol Davis MA - 07/11/2025 11:00 AM EST Chart Prep Labs: not applicable Images: not applicable Referrals: not applicable Vaccines due: Covid, Flu, and Zoster Screenings: mammogram Overdue care gaps: PHQ-9 and PAM-7 documented in this encounter Plan of Treatment Not on file documented as of this encounter Visit Diagnoses Not on filedocumented in this encounter Additional Health Concerns Assessment Noted Time PHQ-9 Depression Total Score: 1 11/06/19 23 1:45 PM EDT documented as of this encounter Care Teams Front Desk Agent Relationship Specialty Start Date End Date Barbara Russell MD [address] [facility] [place] [address] PCP - General Internal Medicine 08/12/13 documented as of this encounter
--- OUTSIDE RECORDS SUMMARY | 2025-07-12 17:55 | XMS_ITS | Clinical Summary ---
Author Organization [employer] Address [address] [facility] [address] [place] [address] Care Team Providers Care Agriculture Inspector Name Role Phone Barbara Russell MD Primary Care Provider [phone] Allergies Active Allergy Reactions Criticality Noted Date Comments Lisinopril Cough 03/06/2020 Medications omega-3 (Fish Oil) 1000 MG capsule 1 cap 2 times a day 022 Active amLODIPine (Norvasc) 5 MG tablet TAKE 1 TABLET ONCE DAILY 30 tablet 11 023 Active omega-3 (fish oil) 1000 MG capsuleIndications:Pur e hypercholesterolemia Place 1 capsule (1,000 mg) into mouth between cheek and gum in the morning and at bedtime. 180 capsule 3 024 Active hydrOXYzine HCl (Atarax) 25 MG tabletIndications:Seas onal allergic rhinitis, unspecified trigger TAKE 1 TABLET IN THE MORNING, AT NOON, AND AT BEDTIME 90 tablet 3 06/02/20 25 12:34 PM EST 025 Active meclizine (Antivert) 25 MG tablet TAKE 1 TABLET NEEDED IN THE MORNING, AT NOON, AND AT BEDTIME FOR DIZZINESS 30 tablet 1 06/02/20 25 12:34 PM EST 025 Active Diclofenac Sodium 1 % gelIndications:Tendini tis APPLY TO THE AFFECTED AREA ON SKIN 3 (THREE) TIMES A DAY 100 g 1 06/02/20 25 12:34 PM EST 025 Active amLODIPine (Norvasc) 5 MG tabletIndications:Esse ntial hypertension Take 1 tablet (5 mg) by mouth Once per day. 90 tablet 3 025 Active esomeprazole (NexIUM) [address] capsuleIndications:Chr onic GERD Take 1 capsule (20 mg) by mouth Once per day. 90 capsule 3 025 Active losartan (Cozaar) 50 MG tabletIndications:Esse ntial hypertension Take 1 tablet (50 mg) by mouth Once per day. 90 tablet 3 025 Active sertraline (Zoloft) 25 MG tabletIndications:PAM (generalized anxiety disorder) Take 1 tablet (25 mg) by mouth Once per day. 90 tablet 3 025 Active gemfibrozil (Lopid) 600 MG tabletIndications:Hype rtriglyceridemia TAKE 1 TABLET two (2) times a day 180 tablet 3 Active fluticasone (Flonase) 50 MCG/ACT nasal sprayIndications:Seaso nal allergic rhinitis, unspecified trigger Administer 1 spray into each nostril Once per day. Shake gently. Before first use, prime pump. After use, clean tip and replace cap. 16 g 1 Active esomeprazole (NexIUM) [address] capsuleIndications:Chr onic GERD TAKE 1 CAPSULE ONCE DAILY 90 capsule 3 06/02/20 25 12:34 PM EST 025 07/12 Discontinued( Reorder (will not trigger notification to Pharmacy)) amLODIPine (Norvasc) 5 MG tabletIndications:Esse ntial hypertension TAKE 1 TABLET ONCE DAILY 90 tablet 3 06/02/20 25 12:34 PM EST 025 07/12 Discontinued( Reorder (will not trigger notification to Pharmacy)) gemfibrozil (Lopid) 600 MG tabletIndications:Hype rtriglyceridemia TAKE 1 TABLET two (2) times a day 180 tablet 3 06/02/20 25 12:34 PM EST 025 07/12 Discontinued( Reorder (will not trigger notification to Pharmacy)) sertraline (Zoloft) 25 MG tabletIndications:PAM (generalized anxiety disorder) TAKE 1 TABLET ONCE DAILY 90 tablet 3 06/02/20 25 12:34 PM EST 025 07/12 Discontinued( Reorder (will not trigger notification to Pharmacy)) losartan (Cozaar) 50 MG tabletIndications:Esse ntial hypertension TAKE 1 TABLET ONCE DAILY 90 tablet 3 06/02/20 12:34 PM EST 025 07/12 Discontinued( Reorder (will not trigger notification to Pharmacy)) fluticasone (Flonase) 50 MCG/ACT nasal sprayIndications:Seaso nal allergic rhinitis, unspecified trigger SPRAY ONCE INTO EACH NOSTRIL two (2) times a day. shake well nhe 16 g 1 06/02/20 12:34 PM EST 025 07/12 Discontinued( Reorder (will not trigger notification to Pharmacy)) Active Problems Problem Noted Date Diagnosed Date Routine adult health maintenance 11/05/2022 Assessment & Plan (11/05/2022 3:15 PM EDT): Patient was requesting lab work printout to take to their local lab, we told them we would fax them over to make things easier. Labs were faxed to [phone] [facility] reference labs in [facility]. Social H: lives with and daughters family. She feels safe Medications: Nexium, lopid, losartan, fish oil, sertraline, OTC: tylenol, advil, loratadine Allergies: lisinopril, denies other allergies or medication allergies. Diet: meat rice and vegetables, Exercise: walks, son says she is very active. PHQ: 1 Smoking status: denies smoking, etoh, drug use Lipids: labs ordered. Mammo: ordered Colonoscopy: 2019 next 10 years 2028. DEXA: She denies ever having one, I could not find documentation of one ever being done. Eye exam: 4 months ago, [facility] Dental home: 1 year ago [facility]. Recommended cleaning. Son stated they usually call but they havent yet. Seasonal allergic rhinitis 11/05/2022 Assessment & Plan (11/05/2022 2:35 PM EDT): Patient requested fluticasone spray. Elevated partial thromboplastin time (PTT) 11/05 Assessment & Plan (11/05/2022 2:24 PM EDT): Partial Thromboplastin Time Component Ref Range & Units 8 mo ago Partial Thromboplastin Time 26.0 - 36.4 SEC 42.7 High INTERNATIONAL NORM RATIO 0.9 - 1.1 0.9 Fatigue due to excessive exertion 11/05/2022 Assessment & Plan (11/05/2022 3:20 PM EDT): She says she is active all day long (chores/gardening etc) so this may play a role in her fatigue. However, she reports her current fatigue level is new and started roughly 3 months ago. I informed her we would do some blood work (cmp, iron panel, tsh) to see if anything was off and we would follow up in a few months to discuss. She was grateful for that. Recommended taking small breaks during the day and hydrating appropriately F/up: recall for fatigue/lab work results 3 months. Blood in stool 11/05/2022 Assessment & Plan (11/05/2022 2:10 PM EDT): Patient has a previous diagnosis on blood in her stool. She denies having any blood in her stool recently. She is followed by GI last appointment was approximately 4 months ago per patient. 2019 COLONOSCOPY-PRADEEP 10/06/18 Findings: Terminal Ileum Not evaluated Cecum Normal Ascending Colon Normal Transverse Colon - Three 5-7 mm sessile polyps removed with a cold biopsy Descending Colon Normal Sigmoid Colon Normal Rectum A 10 mm sessile polyp removed with a cold snare Ano-rectum - Small internal hemorrhoids Colon preparation: Excellent Impression and Post Procedure Diagnosis: Colonoscopy Findings: Four polyps removed Small hemorrhoids on retroflexed exam. Plan: Await pathology results Patient has an appointment on 10/27/18 in the GI Clinic with MONIQUE [place]. Repeat Colonoscopy interval based on path results in 3-5 years if polyps are adenomatous and 10 years if polyps are hyperplastic. BIOPSY: Her last colonoscopy was in 2019 here and she had hyperplastic polyps only, Constipation 10/01/2011 Essential hypertension 10/01/2011 Pain in joint involving lower leg 10/01/2011 Pure hypercholesterolemia 10/01/2011 Assessment & Plan (11/05/2022 2:29 PM EDT): Lipid panel ordered Skin sensation disturbance 10/01/2011 Resolved Problems Problem Noted Date Diagnosed Date Resolved Date Rectal bleeding 11/05/2022 11/05/2022 Assessment & Plan (11/05/2022 2:08 PM EDT): Previous diagnosis of Rectal bleeding 2019 COLONOSCOPY-PRADEEP 10/06/18 Findings: Terminal Ileum Not evaluated Cecum Normal Ascending Colon Normal Transverse Colon - Three 5-7 mm sessile polyps removed with a cold biopsy Descending Colon Normal Sigmoid Colon Normal Rectum A 10 mm sessile polyp removed with a cold snare Ano-rectum - Small internal hemorrhoids Colon preparation: Excellent Impression and Post Procedure Diagnosis: Colonoscopy Findings: Four polyps removed Small hemorrhoids on retroflexed exam. Plan: Await pathology results Patient has an appointment on 10/27/18 in the GI Clinic with MONIQUE [place]. Repeat Colonoscopy interval based on path results in 3-5 years if polyps are adenomatous and 10 years if polyps are hyperplastic. BIOPSY: Her last colonoscopy was in 2019 here and she had hyperplastic polyps only, Encounters Date Type Department Care Team Description 07/12/2025 1:30 PM EST Office Visit [facility] [address] [place] [address] Barbara Russell MD Essential hypertension (Primary Dx); Pure hypercholesterolemia; PAM (generalized anxiety disorder); Essential hypertension; Chronic GERD; PAM (generalized anxiety disorder); Hypertriglyceridemia; Seasonal allergic rhinitis, unspecified trigger; Screening mammogram for breast cancer 07/12/2025 Travel 07/11/2025 Telephone [facility] [address] [place] [address] Barbara Russell MD chart prep 05/28/2025 Refill [facility] [address] [place] [address] Barbara Russell MD Seasonal allergic rhinitis, unspecified trigger; Tendinitis 05/10/2025 2:45 PM EDT Office Visit [facility] [address] [place] [address] Barbara Russell MD Pre-op evaluation (Primary Dx) 05/10/2025 Travel 05/09/2025 Telephone [facility] [address] [place] [address] Barbara Russell MD Chart Prep 04/15/2025 Refill [facility] [address] [place] [address] Barbara Russell MD Tendinitis from Last 3 Months Immunizations Immunization Administration Dates Next Due Influenza injectable quadriv alent IIV4 with preservative 05/01/2018 Influenza injectable quadrivalent preservative f ree 05/07/2017 Influenza, IIV3, injectable 04/11/2014 Influenza, Split (incl. purified surface antigen ) 04/23/2012 Moderna Covid-19 Vaccine 12+ 10/18/2020,09/21/19 21 Pneumococcal Conjugate PCV 20 07/22/2024 Tdap 12/08/2015 Social History Tobacco Use Types Packs/Day Years Used Date Smoking Tobacco: Never Smokeless Tobacco: Never Tobacco Cessation:Counseling Given: No Alcohol Answer Date Recorded Q1: How often [...] t he electric, gas, oil or water [employer] threatened to shut off services in your [...] Orientation Straight 05/13/2022 10 :21 AM EDT Last Filed Vital Signs Vital Sign Reading [...] Mass Index 28.2 07/12/2025 1:39 PM EST Plan of Treatment Health Maintenance Due Date Last Done Comments CT Colonography 1955 FIT DNA/Cologuard 1955 FIT 1955 FOBT 1955 Sigmoidoscopy 1955 Hepatitis C Screening 1973 Zoster Vaccines (1 of 2) 2005 Mammogram 01/12/2025 01/13/2024, 12/13, 12/31/2022 Influenza Vaccine (#1) 2025 8, 05/07/2017, 04/11/2014, Additional history exists SDOH Screening 07/15/2025 07/15/2024 Alcohol/Substance Use Screening 07/22/2025 07/22/2024 DTaP/Tdap/Td Vaccines (2 - Td or Tdap) 12/07/2025 12/08/2015 COVID-19 Vaccine (3 - 2024- season) 2026 10/18/2020, 09/20/2020 Postponed from 03/14/2025 (Patient Refused) Depression Screening 07/12/2026 07/12/2025, 07/12/20 Tobacco Screening 07/12/2026 07/12/2025 Colonoscopy 10/06/2028 10/06/2018 Colorectal Cancer Screening 10/06/2028 Lipid Panel 07/12/2030 07/12/2025, 0503/2024, 11/30/2020 RSV Patients and Patients Aged 60 years or older (1 - 1-dose 75+ series) 2030 Pneumococcal Vaccine: 50+ Years Completed 07/22/2024 HIB Vaccines Aged Out No longer eligi ble based on patient's age to complete this topic HPV Vaccines Aged Out No longer eligi ble based on patient's age to complete this topic Hepatitis A Vaccines Aged Out No long er eligible based on patient's age to complete this topic Hepatitis B Vaccines Aged Out No long er eligible based on patient's age to complete this topic IPV Vaccines Aged Out No longer eligi ble based on patient's age to complete this topic Meningococcal B Vaccine Aged Out No l onger eligible based on patient's age to complete this topic Meningococcal Vaccine Aged Out No enoch parviz eligible based on patient's age to complete this topic RSV under 20 months Aged Out No longe r eligible based on patient's age to complete this topic Rotavirus Vaccines Aged Out No longer eligible based on patient's age to complete this topic Procedures Procedure Name Priority Date/Time Associated Diagnosis Comments TSH W/REFLEX TO FT4 Routine 07/12/2025 2 :13 PM EST Essential hypertension Pure hypercholesterolemia LIPID PANEL, STANDARD Routine 07/12/2025 2:13 PM EST Essential hypertension Pure hypercholesterolemia COMPREHENSIVE METABOLIC PANEL Routine 07/12/2025 2:13 PM EST Essential hypertension Pure hypercholesterolemia CBC WITH AUTO DIFFERENTIAL Routine 07/12/2025 2:13 PM EST Essential hypertension Pure hypercholesterolemia BI MAMMOGRAM SCREENING TOMOSYNTHESIS BILATERAL Routine 01/13/2024 10:45 AM EDT COLONOSCOPY Routine 10/06/2018 from Last 3 Months or Most Recently Relevant to Health Maintenance Results * TSH with Reflex to Free T4 (07/12/2025 2:13 PM EST) TSH reflex Free T4 2.57 0.32 - 4.0 uIU/mL [facility] Blood Venous blood specimen / Unknown 07/12/2025 2:13 PM EST 07/12/2025 3:10 PM EST us Barbara Russell MD LAB BLOOD ORDERABLES Final Result [facility] [address] [place] [address] [phone] * (ABNORMAL) CBC auto differential (07/12/2025 2:13 PM EST) Pathologist [facility] White Blood Count 7.3 4.8 - 10.8 X10*3/uL [facility] Red Blood Count 4.89 4.20 - 5.50 X10*6/uL [facility] Hemoglobin 13.7 12.0 - 16.0 g/dl [facility] Hematocrit 40.4 37.0 - 47.0 % [facility] Mean Corpuscular Volume 82.6 80.0 - 98.0 fL [facility] Mean Corpuscular Hemoglobin 28.0 27.0 - 33.0 pg [facility] Mean Corpuscular HGB Conc 33.9 31.0 - 35.0 g/dl [facility] Red Cell Distribution Width 12.3 11.0 - 16.0 % [facility] Platelet Count 313 160 - 400 X10*3/uL [facility] Mean Platelet Volume 10.2 9.4 - 12.3 fL [facility] Neutrophils Percent Auto 49.1 45 - 73 % [facility] Imm Gran Pct Auto 0.8(H) 0.0 - 0.4 % [facility] Lymphocytes Percent Auto 30.4 20 - 40 % [facility] Monocytes Percent Auto 12.4(H) 2 - 11 % [facility] Eosinophils Percent Auto 6.3(H) 0 - 4 % [facility] Basophils Percent Auto 1.0 0 - 2 % [facility] NRBC Pct Auto 0.0 0.0 - 0.2 /100WBC [facility] Neutrophils Absolute Auto 3.6 2.0 - 8.3 x10*3/uL [facility] Imm Gran Abs Auto 0.06(H) 0.00 - 0.03 X10*3/uL [facility] Lymphocytes Absolute Auto 2.2 1.2 - 4.9 X10*3/uL [facility] Monocytes Absolute Auto 0.9 0.1 - 1.2 X10*3/uL [facility] Eosinophils Absolute Auto 0.5(H) 0.0 - 0.4 X10*3/uL [facility] Basophils Absolute Auto 0.1 0.0 - 0.2 X10*3/uL [facility] NRBC Abs Auto 0.000 0.0 - 0.012 X10*3/uL [facility] Blood Venous blood specimen / Unknown 07/12/2025 2:13 PM EST 07/12/2025 3:06 PM EST us Barbara Russell MD LAB BLOOD ORDERABLES Final Result [facility] [address] [place] [phone] * (ABNORMAL) Lipid Panel, Standard (07/12/2025 2:13 PM EST) Triglycerides 494(H) <150 mg/dL [facility] Comment:Slight Lipemia.Martita able Triglyceride: less than 150 mg/dLBorderline High Triglyceride 150-199 mg/dLHigh Triglyceride: 200-499 mg/dLVery High Triglyceride: greater than or equal to 5OO mg/dL Cholesterol 163 <200 mg/dL [facility] Comment:Desirable Cholestero l: less than 200 mg/dLBorderline High Cholesterol: 200-239 mg/dLHigh Cholesterol: greater than 239 mg/dL LDL Cholesterol Calculated TNP <100 mg/dL [facility] Comment:Unable to calculate the LDL. The formula of Friedwald,Rosales, and Odalys is only valid if the triglycerides areless than 400 mg/dl. HDL Cholesterol 23(L) >40 mg/dL [facility] Comment:Desirable HDL: great er than 40 mg/dL Note: This HDL assay may give artificially low results in patients with liver disease. Blood Venous blood specimen / Unknown 07/12/2025 2:13 PM EST 07/12/2025 3:10 PM EST us Barbara Russell MD LAB BLOOD ORDERABLES Final Result [facility] [address] [place] [phone] [phone] * (ABNORMAL) Comprehensive Metabolic Panel (07/12/2025 2:13 PM EST) Sodium 141 135 - 145 mmol/L [facility] Potassium 3.9 3.3 - 5.1 mmol/L [facility] Chloride 108 96 - 108 mmol/L [facility] Carbon Dioxide 24 22 - 29 mmol/L [facility] Anion Gap 13 12 - 20 [facility] Urea Nitrogen (BUN) 24(H) 9 - 16 mg/dL [facility] Creatinine, Serum 0.66 0.5 - 1.4 mg/dL [facility] Estimated Glomerular Filt Rate >60 [facility] Comment:Chronic Kidney Disea se: Estimated GFR < 60 mL/min/1.12w4Wubkux Kidney Disease: Estimated GFR < 15 mL/min/1.73m2 Glucose 142(H) 60 - 115 mg/dL [facility] Calcium 9.4 8.4 - 10.2 mg/dL [facility] Bilirubin, Total 0.3 0.0 - 1.0 mg/dL [facility] Aspartate Amino Transferase 43(H) 5 - 31 U/L [facility] Alanine Aminotransferase 13 0 - 31 U/L [facility] Total Protein 7.7 6.5 - 8.0 g/dL [facility] Albumin Level 4.7 3.5 - 5.0 g/dL [facility] Alkaline Phosphatase 86 39 - 117 U/L [facility] Blood Venous blood specimen / Unknown 07/12/2025 2:13 PM EST 07/12/2025 3:10 PM EST us Barbara Russell MD LAB BLOOD ORDERABLES Final Result [facility] [address] [place] [address] [phone] * BI Mammogram Screening Tomosynthesis Bilateral (01/13/2024 10:45 AM EDT) Anatomical Region Laterality Modality Breast Bilateral Mammography 01/13/2024 10:4 5 AM EDT Narrative 02/11/2024 6:45 AM EDT [facility] [address] [place] [address] Mammography Report Signed Patient: Purnima Gutierrez MR#: [id number] : 1955 Acct:[id number] Age/Sex: 68 / F ADM Date: 01/13/24 Loc: HO.MAMMO Attending Dr: Barbara Russell MD Ordering Physician: Barbara Russell MD Results: 1 Negative Date of Service: 01/13/24 Follow Up: 1 Year From [facility] Mammogram Procedure(s): MM tomosynthesis screening BI Accession Number(s): [id number] cc: Barbara Russell MD EXAMINATION: MM SCREENING DIGITAL BREAST TOMOSYNTHESIS, BILATERAL CLINICAL INFORMATION: Screening. Asymptomatic. COMPARISON: Mammography: This study is compared with prior exams dating back to 2012. TECHNIQUE: Digital breast tomosynthesis is performed in both the craniocaudal and mediolateral oblique views along with computer-aided detection (CAD). Synthesized 2D images are generated from the tomosynthesis. FINDINGS: There are scattered areas of fibroglandular density (ACR BI-RADS breast composition Category b). There are no significant masses, abnormal calcifications, or other abnormalities. MM/MM tomosynthesis screening BI IMPRESSION: No mammographic evidence of malignancy. ASSESSMENT: BI-RADS BI-RADS 1 - Negative RECOMMENDATION: Routine annual mammography screening. 1 year F/U This examination should not preclude the clinical evaluation of a suspicious palpable abnormality. This patient's information was entered into a reminder system with a target due date for their next mammogram. Dictated By: Keshia Grover MD Signed By: <Electronically signed by Keshia Grover MD in OV> 02/11/24 0642 DD/ 1045 TD/TT: Warp Tension Tester: Procedure Note Donotuseinterpreter, Image - 02/11/2024 [facility] [address] [place] [address] Mammography Report Signed Patient: Purnima GutierrezMR#: [id number] : 6Acct:[id number] Age/Sex: 68 / FADM Date: 01/13/24 Loc: HO.MAMMO Attending Dr: Barbara Russell MD Ordering Physician: Barbara Russell MDResults: 1 Negative Date of Service: 01/13/24Follow Up: 1 Year From [facility] Mammogram Procedure(s): MM tomosynthesis screening BI Accession Number(s): [id number] cc: Barbara Russell MD EXAMINATION: MM SCREENING DIGITAL BREAST TOMOSYNTHESIS, BILATERAL CLINICAL INFORMATION: Screening. Asymptomatic. COMPARISON: Mammography: This study is compared with prior exams dating back to 2012. TECHNIQUE: Digital breast tomosynthesis is performed in both the craniocaudal and mediolateral oblique views along with computer-aided detection (CAD). Synthesized 2D images are generated from the tomosynthesis. FINDINGS: There are scattered areas of fibroglandular density (ACR BI-RADS breast composition Category b). There are no significant masses, abnormal calcifications, or other abnormalities. MM/MM tomosynthesis screening BI IMPRESSION: No mammographic evidence of malignancy. ASSESSMENT: BI-RADS BI-RADS 1 - Negative RECOMMENDATION: Routine annual mammography screening. 1 year F/U This examination should not preclude the clinical evaluation of a suspicious palpable abnormality. This patient's information was entered into a reminder system with a target due date for their next mammogram. Dictated By: Keshia Grover MD Signed By: <Electronically signed by Keshia Grover MD in OV> 02/11/24 0642 DD/ 1045 TD/TT: Warp Tension Tester: us Barbara Russell MD IMG BI PROCEDURES Final Res ult * Colonoscopy (10/06/2018) Colonoscopy Normal Normal Narrative Jessi Sheppard - 10/06/2018 Recommended 10 year follow up us Historical Provider HEALTH MAINTENANCE Final Result from Last 3 Months or Most Recently Relevant to Health Maintenance Insurance [facility] [employer] (O D-SNP) MONIQUE KAUFFMAN [id number] * Guarantor: Purnima Gutierrez I Account Type Relation to Patient Date of Phone Billing Address Personal/[place] [address] * Guarantor: Purnima Gutierrez I Account Type Relation to Patient Date of Phone Billing Address Personal/[place] [address] Care Teams Agriculture Inspector Relationship Specialty Start Date End Date Barbara Russell MD [address] [place] [phone] PCP - General Internal Medicine 08/12/13
--- OUTSIDE RECORDS SUMMARY | 2025-07-12 17:55 | XMS_ITS | Encounter Summary ---
Author Organization [employer] Address [address] [facility] 7t [place] [address] Care Team Providers Care It Quality Analyst Name Role Phone Barbara Russell MD Primary Care Provider [phone]- [phone] Encounter Details Date Type Department Care Team ([facility] st Contact Info) Description 05/15/2023 Abstract [facility] MEDICINE [address] [place] [address] Barbara Russell MD [address] [place], [place] [phone] Social History Tobacco Use Types Packs/Day Years Used Date Smoking Tobacco: Never Assessed Depression Answer Date Recorded Patient Health Questionnaire-9 Score 1 11/05/2022 Depression Answer Date Recorded Patient Health Questionnaire-2 Score 0 11/05/2022 Comments Unknown Sex and Gender Information Value Date Recorded Sex Assigned at Female 05/13/2022 10:21 AM EDT Legal Sex Female 10:21 AM EDT Gender Identity Female 05/13/2022 10:21 AM EDT Sexual Orientation Straight 05/13/2022 10 :21 AM EDT documented as of this encounter Plan of Treatment Not on file documented as of this encounter Procedures Procedure Name Priority Date/Time Associated Diagnosis Comments COLONOSCOPY Routine 10/06/2018 documented in this encounter Results * Colonoscopy (10/06/2018) Colonoscopy Normal Normal Narrative Jessi Sheppard - 10/06/2018 Recommended 10 year follow up us Historical Provider HEALTH MAINTENANCE Final Result documented in this encounter Visit Diagnoses Not on filedocumented in this encounter Additional Health Concerns Assessment Noted Time PHQ-9 Depression Total Score: 1 11/06/19 23 1:45 PM EDT documented as of this encounter Care Teams It Quality Analyst Relationship Specialty Start Date End Date Barbara Russell MD [address] [place] [id number] PCP - General Internal Medicine 08/12/13 documented as of this encounter
--- OUTSIDE RECORDS SUMMARY | 2025-07-12 17:55 | XMS_ITS | Encounter Summary ---
Author Organization [employer] Address [address] [facility] 7 [place] [address] Care Team Providers Care Surveyor Mine Name Role Phone Barbara Russell MD Primary Care Provider [phone]- [phone] Reason for Visit * Reason Comments Med Refill Encounter Details Date Type Department Care Team (Late st Contact Info) Description 01/03/2023 Refill [facility] MEDICINE [address] [place], [place] [phone] Barbara Russell MD [address] [place], [place] [phone] Pure hypercholesterolemia Social History Tobacco Use Types Packs/Day Years [...] documented as of this encounter Visit Diagnoses Diagnosis Pure hypercholesterolemia documented in this encounter Additional Health Concerns Assessment Noted Time PHQ-9 Depression Total Score: 1 11/06/19 23 1:45 PM EDT documented as of this encounter Care Teams Surveyor Mine Relationship Specialty Start Date End Date Barbara Russell MD [address] [place] [address] PCP - General Internal Medicine 08/12/13 documented as of this encounter
--- OUTSIDE RECORDS SUMMARY | 2025-07-12 17:55 | XMS_ITS | Encounter Summary ---
Author Organization [employer] Address [address] [facility] 7t [place] [address] Care Team Providers Care Manager Code Name Role Phone Barbara Russell MD Primary Care Provider [phone]- [phone] Encounter Details Date Type Department Care Team ([facility] st Contact Info) Description 03/18/2023 Orders Only [facility] CHC MED & PEDS [address] [place] [address] Virginie Nolen LPN Social History Tobacco Use Types Packs/Day Years [...] documented as of this encounter Care Teams Manager Code Relationship Specialty Start Date End Date Barbara Russell MD [address] [place] [address] PCP - General Internal Medicine 08/12/13 documented as of this encounter
--- OUTSIDE RECORDS SUMMARY | 2025-07-12 17:56 | XMS_ITS | Encounter Summary ---
Author Organization [employer] Address [address] [place] [address] 7 [place] [address] Care Team Providers Care Eye Clinic Manager Name Role Phone Barbara Russell MD Primary Care Provider +1- [phone] Encounter Details Date Type Department Care Team (Latest Contact Info) Description 12/10/2018 Abstract [facility] Dental, Provider, DDS Social History Tobacco Use Types Packs/Day Years Used Date Smoking Tobacco: Never Assessed Comments Unknown Sex and Gender Information Value Date Recorded Sex Assigned at Female 05/13/2022 10:21 AM EDT Legal Sex Female 10:21 AM EDT Gender Identity Female 05/13/2022 10:21 AM EDT Sexual Orientation Straight 05/13/2022 10 :21 AM EDT documented as of this encounter Plan of Treatment Not on file documented as of this encounter Visit Diagnoses Not on filedocumented in this encounter Care Teams Eye Clinic Manager Relationship Specialty Start Date End Date Barbara Russell MD [address] [place] [address] PCP - General Internal Medicine 08/12/13 documented as of this encounter
--- OUTSIDE RECORDS SUMMARY | 2025-07-12 17:56 | XMS_ITS | Encounter Summary ---
Author Organization [employer] Address [address] [facility] 7t [place] [address] Care Team Providers Care Stenographic Court Reporter Name Role Phone Barbara Russell MD Primary Care Provider +1- [phone] Reason for Visit * Reason Comments Med Refill Encounter Details Date Type Department Care Team (Late st Contact Info) Description 08/16/2022 Refill [facility] MEDICINE [address] [place], [place] [phone] Name, MD Tee [address] [place] [address] Pure hypercholesterolemia (Primary Dx) Social History Tobacco Use Types Packs/Day Years [...] of this encounter Visit Diagnoses Diagnosis Pure hypercholesterolemia- Primary documented in this encounter Care Teams Stenographic Court Reporter Relationship Specialty Start Date End Date Barbara Russell MD [address] [place] [address] PCP - General Internal Medicine 08/12/13 documented as of this encounter
--- OUTSIDE RECORDS SUMMARY | 2025-07-12 17:56 | XMS_ITS | Encounter Summary ---
Author Organization [employer] Address [address] [facility] 7 [place] [address] Care Team Providers Care Production Intern Name Role Phone Barbara Russell MD Primary Care Provider +[phone] Reason for Visit * Reason Comments Med Refill Encounter Details Date Type Department Care Team ([facility] st Contact Info) Description 03/17/2025 Refill [facility] MED & PEDS [address] [place], [place] [phone] Barbara Russell MD [address] [place] [address] Chronic idiopathic constipation; Unspecified hemorrhoids Social History Tobacco Use Types Packs/Day Years [...] Recorded Patient Health Questionnaire-9 Score 1 11/05/2022 Housing Stability Answer Date Recorded What is [...] Recorded Patient Health Questionnaire-2 Score 0 11/05/2022 Internet Access Answer Date Recorded Internet Access [...] as of this encounter Visit Diagnoses Diagnosis Chronic idiopathic constipation Unspecified constipation Unspecified hemorrhoids documented in this encounter Additional Health Concerns Assessment Noted Time PHQ-9 Depression Total Score: 1 11/06/19 23 1:45 PM EDT documented as of this encounter Care Teams Production Intern Relationship Specialty Start Date End Date Barbara Russell MD [address] [place] [address] PCP - General Internal Medicine 08/12/13 documented as of this encounter
--- OUTSIDE RECORDS SUMMARY | 2025-07-12 17:56 | XMS_ITS | Encounter Summary ---
Author Organization [employer] Address [address] [facility] 7 [place] [address] Care Team Providers Care Roll Edge Machine Operator Name Role Phone Barbara Russell MD Primary Care Provider +[phone] Reason for Visit * Reason Comments Med Refill Encounter Details Date Type Department Care Team ([facility] st Contact Info) Description 03/18/2025 Refill [facility] CHC MED & PEDS [address] [place], [place] [phone] Barbara Russell MD [address] [place] [address] Chronic idiopathic constipation; Unspecified hemorrhoids Social History [...] documented as of this encounter Care Teams Roll Edge Machine Operator Relationship Specialty Start Date End Date Barbara Russell MD [address] [place] [id number] PCP - General Internal Medicine 08/12/13 documented as of this encounter
--- OUTSIDE RECORDS SUMMARY | 2025-07-12 17:56 | XMS_ITS | Encounter Summary ---
Author Organization [employer] Address [address] [facility] 7t [place] [address] Care Team Providers Care Brim Cutter Name Role Phone Barbara Russell MD Primary Care Provider [phone]- [phone] Encounter Details Date Type Department Care Team (Late st Contact Info) Description 08/27/2022 Orders Only [facility] MEDICINE [address] [place] [address] Terese Ornelas LPN Social History Tobacco Use Types Packs/Day [...] on filedocumented in this encounter Care Teams Brim Cutter Relationship Specialty Start Date End Date Barbara Russell MD [address] [place] [address] PCP - General Internal Medicine 08/12/13 documented as of this encounter
--- OUTSIDE RECORDS SUMMARY | 2025-07-12 17:56 | XMS_ITS | Encounter Summary ---
Author Organization [employer] Address [address] [facility] 7 [place] [address] Care Team Providers Care Rn Acute Care Name Role Phone Barbara Russell MD Primary Care Provider [phone]- [phone] Reason for Visit * Reason Onset Date Comments Appointment Request 10/23/2023 Encounter Details Date Type Department Care Team (Late st Contact Info) Description 10/23/2023 Telephone [facility] MEDICINE [address] [place] [address] Barbara Russell MD [address] [place] [phone] Appointment Request Social History Tobacco Use Types Packs/Day Years [...] encounter Miscellaneous Notes * Telephone Encounter - Oliverio Toro - 10/23/2023 3:47 PM EDT Tc from the patients son requesting a routine Check up appt there is no concerns at this time and would like to be scheduled same day with spouse documented in this encounter Plan of Treatment Not on file documented as of this encounter Visit Diagnoses Not on filedocumented in this encounter Additional Health Concerns Assessment Noted Time PHQ-9 Depression Total Score: 1 11/06/19 23 1:45 PM EDT documented as of this encounter Care Teams Rn Acute Care Relationship Specialty Start Date End Date Barbara Russell MD [address] [place] [address] PCP - General Internal Medicine 08/12/13 documented as of this encounter
== END 2025-07-12 14:09 | disposition home or self-care (01) ==
LOC: HO.CHCLDS 14:08
PROVIDERS: Visit Provider Internal Medicine
DX: I10 Essential (primary) hypertension (principal); E78.00 Pure hypercholesterolemia, unspecified
CPT/HCPCS: 36415; 80053; 80061; 84443; 85025